=== PATIENT | male | born 1960 | race Caucasian/White ===

== ENCOUNTER 2020-04-06 13:59 | Observation (INO) ==
[2020-04-06] MEDS ORDERED: NS 0.9% 1000 ml BAG 1,000 ML IV ONE (15:00)
[2020-04-06 15:04] LABS: ABS Basophils 0.1 10^3/ul (0-0.2); ABS Eosinophils 0.2 10^3/ul (0-0.6); ABS Lymphocytes 2.2 10^3/ul (1.0-4.8); ABS Neutrophils 7.1 10^3/ul (1.5-7.7); Eosinophil % 1.8 %; Hematocrit 42 % (42-52); Hemoglobin 14.2 g/dL (14.0-18.0); Lymphocyte % 20.7 %; Mean Corpuscular HGB Conc 34 g/dL (31-36); Mean Corpuscular Hemoglobin 30 pg (27-31); Mean Corpuscular Volume 87 fL (80-94); Mean Platelet Volume 8.8 fL (7.4-10.4); Nucleated Red Blood Cells % 0.1; Platelet Count 293 10^3/uL (150-450); Red Cell Distribution Width 16 % (10-15); White Blood Count 10.6 10^3/uL (3.5-10.8)
[2020-04-06 15:37] LABS: Albumin 4.4 g/dL (3.2-5.2); Albumin/Globulin Ratio 1.6 (1-3); BUN/Creatinine Ratio 12.4 (8-20); Calcium 9.9 mg/dL (8.6-10.3); EGFR African American 60.7 (>60); EGFR Non-African American 50.2 (>60); Globulin 2.8 g/dL (2-4); Potassium 4.3 mmol/L (3.5-5.0); Total Bilirubin 0.7 mg/dL (0.2-1.0); Total Protein 7.2 g/dL (6.4-8.9)
[2020-04-06] MEDS ORDERED: Morphine 2 MG/ML SYRINGE IV PRN (16:51)
[2020-04-06] MEDS ORDERED: Al Hydrox/Mg Hydrox/Simet LIQ 30 ML UDC PO PRN (16:51)
[2020-04-06] MEDS ORDERED: NS 0.9% 1000 ml BAG 1,000 ML IV SCH (17:00)
[2020-04-06] MEDS ORDERED: Albuterol/Ipratropium NEB.SOL (2.5/0.5 MG) 3 ML NEB.SOLN INH PRN (17:03)
[2020-04-06] MEDS: Mometasone/Formoter 200/5 MDI INH SCH (19:48)
[2020-04-07 07:07] LABS: ABS Eosinophils 0.2 10^3/ul (0-0.6); ABS Monocytes 0.8 10^3/ul (0-0.8); ABS Neutrophils 3.4 10^3/ul (1.5-7.7); Eosinophil % 3.3 %; Hematocrit 38 % (42-52); Hemoglobin 12.8 g/dL (14.0-18.0); Lymphocyte % 30.6 %; Mean Corpuscular HGB Conc 34 g/dL (31-36); Mean Corpuscular Hemoglobin 29 pg (27-31); Mean Corpuscular Volume 87 fL (80-94); Mean Platelet Volume 8.6 fL (7.4-10.4); Platelet Count 229 10^3/uL (150-450); Red Blood Count 4.36 10^6 /uL (4.18-5.48); Red Cell Distribution Width 16 % (10-15); White Blood Count 6.4 10^3/uL (3.5-10.8)
[2020-04-07 07:26] LABS: BUN/Creatinine Ratio 15.7 (8-20); Calcium 8.2 mg/dL (8.6-10.3); EGFR African American 91.1 (>60); EGFR Non-African American 75.3 (>60); Potassium 3.8 mmol/L (3.5-5.0)
[2020-04-07 08:07] VITALS: BP 144/60
[2020-04-07] MEDS: Mometasone/Formoter 200/5 MDI INH SCH (08:13)
[2020-04-07] MEDS ORDERED: Umeclidinium 62.5 MDI(NF) MDI INH SCH (09:00)
== END 2020-04-07 12:30 | disposition home or self-care (01) ==
LOC: ED 13:59 → MEDTELE 13:59
PROVIDERS: ADMIT Internal Medicine; ATTEND Internal Medicine